=== PATIENT | female | born 1985 | race Caucasian/White ===

== ENCOUNTER 2021-07-21 06:37 | Day surgery (SDC) | payer BC ==
[~2021-07-21 06:37] MED LIST: Sodium Chloride 0.9% 10 ML Syringe FLUSH PRN; Sodium Chloride 0.9% 2.5 ML Syringe FLUSH PRN; Sodium Chloride 0.9% 20 ML SDV IV PRN
[2021-07-21] MEDS ORDERED: Ondansetron 4 MG/2 ML SDV ONE (07:20)
[2021-07-21] MEDS ORDERED: Midazolam 1 MG/ML 2 ML SDV ONE (07:20)
[2021-07-21] MEDS ORDERED: Propofol 200 MG/20 ML SDV ONE (07:20)
[2021-07-21] MEDS ORDERED: fentaNYL 100 MCG/2 ML SDV ONE (07:20)
[2021-07-21] MEDS ORDERED: Lidocaine 1% with EPINEPHrine 1:100,000 20 ML MDV ONE (07:25)
[2021-07-21] MEDS ORDERED: Morphine 4 MG/ML VIAL IVPUSH PRN (07:53)
[2021-07-21] MEDS ORDERED: Naloxone 0.4 MG/ML SDV IVPUSH PRN (07:53)
[2021-07-21] MEDS ORDERED: Metoclopramide 10 MG/2 ML SDV IVPUSH PRN (07:53)
[2021-07-21] MEDS ORDERED: HYDROmorphone 1 MG/ML Syringe IVPUSH PRN (07:53)
[2021-07-21] MEDS ORDERED: Ondansetron 4 MG/2 ML SDV IVPUSH PRN (07:53)
[2021-07-21] MEDS ORDERED: fentaNYL 100 MCG/2 ML SDV IVPUSH PRN (07:53)
[2021-07-21] MEDS ORDERED: Albuterol 0.083% 2.5 MG/3 ML Neb Soln NEB PRN (07:53)
[2021-07-21] MEDS ORDERED: Dexamethasone 4 MG/ML 5 ML MDV ONE (08:12)
[2021-07-21] MEDS ORDERED: Atropine 1 MG/ML SDV ONE (08:13)
[2021-07-21] MEDS ORDERED: Lidocaine 1% 20 ML MDV ONE (08:20)
[2021-07-21] MEDS ORDERED: diphenhydrAMINE 50 MG/ML SDV ONE (08:29)
== END 2021-07-21 09:53 | disposition home or self-care (01) ==
LOC: MW.SDS 06:37
PROVIDERS: ATTEND Obstetrics & Gynecology
DX: D06.9 Carcinoma in situ of cervix, unspecified (principal); N72 Inflammatory disease of cervix uteri; Z79.899 Other long term (current) drug therapy; Z98.890 Other specified postprocedural states; Z88.8 Allergy status to other drugs, medicaments and biological substances
CPT/HCPCS: 36415; 57522; 84703; 85027; J0131; J0461; J1100; J1200; J2250; J2704; 00940; J2405; J3010